=== PATIENT | female | born 2000 | race Caucasian/White ===

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

== ENCOUNTER 2019-01-31 10:02 | Emergency (ER) ==
[2019-01-31 10:11] VITALS: BP 130/90; TEMP 97.7; BMI 58.6
--- NOTE | 2019-01-31 11:02 | ED.PDOC ---
General ED Provider: Dr. MONICA SOMMERS Chief Complaint: Sore Throat Stated Complaint: sore throat Time Seen by Physician: 10:04 Mode of Arrival: Walk-In Information Source: Patient Exam Limitations: No limitations Primary Care Provider: DERRICK WU Nursing and Triage Documentation Reviewed and Agree: Yes Does patient meet sepsis criteria?: No If yes, has appropriate treatment been initiated?: No System Inflammatory Response Syndrome: Not Applicable Sepsis Protocol: For patient's 13 years and over: Temp is 96.8 and below OR 101 and greater Pulse >90 BPM Resp >20/minute Acutely Altered Mental Status Are patient's symptoms suggestive of a new infection, such as: -Pneumonia -Skin, Soft Tissue -Endocarditis -UTI -Bone, Joint Infection -Implantable Device -Acute Abdominal Infection -Wound Infection -Meningitis -Blood Stream Catheter Infection -Unknown EENT Complaint Exam - Throat Complaint/Exam Symptoms Are: Still present Timimg: Intermittent Initial Severity: Mild Current Severity: Mild Aggravating: Reports: None Alleviating: Reports: None Associated Signs and Symptoms: Reports: Chills, Cough, Nasal congestion. Denies : Fever, Dysphagia, Drooling, Foreign body sensation, Wheezing, Hoarseness, Sinus discomfort, Difficulty breathing, Lethargy, Irritability, Decreased activity, Vomiting, Diarrhea, Decreased hearing, Ear drainage Uvula Midline: Yes Rosalba-tonsillar Fluctuence: No Scarlatinaform Rash Present: No Lesions: Absent: Lip, Gums, Tongue, Buccal Mucosa, Pharynx Exanthem: Absent: Lip, Gums, Tongue, Buccal Mucosa, Pharynx Vesicles: Absent: Lip, Gums, Tongue, Buccal Mucosa, Pharynx Stridor Present: Yes Sinus Tenderness Present: No Tonsillar Hypertrophy Present: No Tonsillar Exudate Present: No Rosalba-tonsillar Swelling Present: No Review of Systems - Review Of Systems Constitutional: Reports: No symptoms Eyes: Reports: No symptoms Ears, Nose, Mouth, Throat: Reports: Throat pain Respiratory: Reports: No symptoms Cardiac: Reports: No symptoms GI: Reports: No symptoms : Reports: No symptoms Musculoskeletal: Reports: No symptoms Skin: Reports: No symptoms Neurological: Reports: No symptoms Endocrine: Reports: No symptoms Hematologic/Lymphatic: Reports: No symptoms All Other Systems: Reviewed and Negative Past Medical History - Past Medical History Previously Healthy: Yes Endocrine: Reports: None Cardiovascular: Reports: None Respiratory: Reports: None Hematological: Reports: None Gastrointestinal: Reports: None Genitourinary: Reports: None Neuro/Psych: Reports: None Musculoskeletal: Reports: None, Other (right ankle growth plate fracture) Cancer: Reports: None Last Menstrual Period: now - Surgical History General Surgical History: Reports: Appendectomy, Tonsillectomy, Adenoidectomy - Family History Family History: Reports: Unknown - Social History Smoking Status: Vaping Hx Substance Use: No Alcohol Screening: None Physical Exam - Physical Exam Appearance: Well-appearing, No pain distress, Well-nourished Eyes: EMORY, EOMI, Conjunctiva clear ENT: Ears normal, Nose normal, Erythema Respiratory: Airway patent, Breath sounds clear, Breath sounds equal, Respirations nonlabored Cardiovascular: RRR, Pulses normal, No rub, No murmur GI/: Soft, Nontender, No masses, Bowel sounds normal, No Organomegaly Musculoskeletal: Normal strength, ROM intact, No edema, No calf tenderness Skin: Warm, Dry, Normal color Neurological: Sensation intact, Motor intact, Reflexes intact, Cranial nerves intact, Alert, Oriented Psychiatric: Affect appropriate, Mood appropriate Critical Care Note - Critical Care Note Total Time (mins): 0 Course - Course Orders, Labs, Meds: Lab Review 01/31/19 10:25 Influ A Molecular Assay Negative by naat Influ B Molecular Assay Negative by naat Orders Category Date Time Status FLU A/B MOLECULAR Stat LAB 01/31/19 10:20 Uncollected MOLECULAR GROUP A STREP Stat LAB 01/31/19 10:20 Uncollected Vital Signs: Temp Pulse Resp BP Pulse Ox 01/31/19 10:03 97.7 F 93 H 16 130/90 97 Departure - Departure Time of Disposition: 11:02 Disposition: HOME SELF-CARE Discharge Problem: Sore throat symptom Pharyngitis Qualifiers: Pharyngitis/tonsillitis etiology: unspecified etiology Qualified Code(s): J02.9 - Acute pharyngitis, unspecified Instructions: Pharyngitis (ED) Condition: Good Pt referred to PMD for follow-up: Yes IPMP verified?: No Allergies/Adverse Reactions: Allergies No Known Allergies Allergy (Verified 01/31/19 10:07) Home Medications: Ambulatory Orders 1 [No Reported Medications] 01/31/19 Disposition Discussed With: Patient
== END 2019-01-31 11:45 | disposition home or self-care (01) ==
LOC: ED 10:02
DX: J02.9 Acute pharyngitis, unspecified (principal); R68.83 Chills (without fever); R05 Cough; R09.81 Nasal congestion; R07.0 Pain in throat
CPT/HCPCS: 87502; 87651; 99283

== ENCOUNTER 2019-06-12 22:51 | Emergency (ER) ==
[2019-06-12 23:02] VITALS: BP 131/83; TEMP 98.8; BMI 58.8
[2019-06-12] MEDS ORDERED: SODIUM CHLORIDE 1,000 ML IV STA (23:06)
--- NOTE | 2019-06-13 00:47 | ED.PDOC ---
General ED Provider: Dr. LAURA KIM-ER Chief Complaint: Abdominal Pain Stated Complaint: ino got pain around my navel Time Seen by Physician: 22:55 Mode of Arrival: Walk-In Information Source: Patient Exam Limitations: No limitations Primary Care Provider: DERRICK CHADWICK Nursing and Triage Documentation Reviewed and Agree: Yes Does patient meet sepsis criteria?: No System Inflammatory Response Syndrome: Not Applicable Sepsis Protocol: For patient's 13 years and over: Temp is 96.8 and below OR 101 and greater Pulse >90 BPM Resp >20/minute Acutely Altered Mental Status Are patient's symptoms suggestive of a new infection, such as: -Pneumonia -Skin, Soft Tissue -Endocarditis -UTI -Bone, Joint Infection -Implantable Device -Acute Abdominal Infection -Wound Infection -Meningitis -Blood Stream Catheter Infection -Unknown GI Complaint Exam - Abdominal Pain Complaint/Exam Onset: Gradual Duration: 24 hrs Symptoms Are: Still present Timing: Constant Initial Severity: Mild Current Severity: Mild Location of Pain: Epigastric Character: Reports: Aching Alleviating: Reports: None Associated Signs and Symptoms: Denies: Diaphoresis, Fever, Cough, Chest pain, Dizziness, Back pain, Constipation, Blood in stool, Dysuria, Urinary frequency, Decreased urine output, Decreased appetite, Vaginal bleeding, Vaginal discharge , Nausea, Vomiting, Diarrhea, Sore throat, Decreased activity Differential Diagnoses: Appendicitis Review of Systems - Review Of Systems Constitutional: Reports: No symptoms Eyes: Reports: No symptoms Ears, Nose, Mouth, Throat: Reports: No symptoms Respiratory: Reports: No symptoms Cardiac: Reports: No symptoms GI: Reports: Abdominal pain : Reports: No symptoms Musculoskeletal: Reports: No symptoms Skin: Reports: No symptoms Neurological: Reports: No symptoms Endocrine: Reports: No symptoms Hematologic/Lymphatic: Reports: No symptoms All Other Systems: Reviewed and Negative Past Medical History - Past Medical History Previously Healthy: Yes Endocrine: Reports: None Cardiovascular: Reports: None Respiratory: Reports: None Hematological: Reports: None Gastrointestinal: Reports: None Genitourinary: Reports: None Neuro/Psych: Reports: None Musculoskeletal: Reports: None, Other (right ankle growth plate fracture) Cancer: Reports: None Last Menstrual Period: 05/12/19 - Surgical History General Surgical History: Reports: Appendectomy, Tonsillectomy, Adenoidectomy - Family History Family History: Reports: Unknown - Social History Smoking Status: Former smoker, Vaping Hx Substance Use: No Alcohol Screening: None - Immunizations Tetanus Shot up to Date: Yes Physical Exam - Physical Exam Appearance: Well-appearing, No pain distress, Well-nourished Pain Distress: Mild Eyes: EMORY, EOMI, Conjunctiva clear ENT: Ears normal, Nose normal, Oropharynx normal Neck: Supple Respiratory: Airway patent, Breath sounds clear, Breath sounds equal, Respirations nonlabored Cardiovascular: RRR GI/: Soft, Nontender, No masses, Bowel sounds normal, No Organomegaly Musculoskeletal: Normal strength Skin: Warm, Dry, Normal color Neurological: Sensation intact, Motor intact, Reflexes intact, Cranial nerves intact, Alert, Oriented Psychiatric: Affect appropriate, Mood appropriate Interpretation - Radiology Interpretation Radiology Interpretation By: Radiologist Radiology Results: Positive Exam Interpreted: CT Scan Critical Care Note - Critical Care Note Total Time (mins): 0 Course - Course Hematology/Chemistry: 06/12/19 23:13 06/12/19 23:13 Orders, Labs, Meds: Lab Review 06/12/19 06/12/19 06/12/19 23:13 23:13 23:13 WBC 9.47 RBC 4.50 Hgb 13.6 Hct 40.7 MCV 90.4 MCH 30.2 MCHC 33.4 RDW Coeff of Jarett 12.6 Plt Count 367 Immature Gran % (Auto) 0.3 Neut % (Auto) 68.9 Lymph % (Auto) 22.2 [place] % (Auto) 7.8 Eos % (Auto) 0.4 Baso % (Auto) 0.4 Immature Gran # (Auto) 0.0 Neut # (Auto) 6.5 Lymph # (Auto) 2.1 [place] # (Auto) 0.7 Eos # (Auto) 0.0 Baso # (Auto) 0.0 ESR 18 Sodium 141.6 Potassium 4.00 Chloride 105.4 Carbon Dioxide 25.9 Anion Gap 14.30 BUN 7.6 Creatinine 0.69 Estimated GFR (MDRD) 110.00 BUN/Creatinine Ratio 11.01 Glucose 111.3 H Calcium 8.86 Total Bilirubin 0.49 L AST 19.5 ALT 17.9 Alkaline Phosphatase 69.4 Total Protein 7.06 Albumin 3.93 Globulin 3.13 Albumin/Globulin Ratio 1.25 Amylase 61.2 Lipase 98.4 Serum , Qual Negative Urine Color Urine Clarity Urine pH Ur Specific [place] Urine Protein Urine Glucose (UA) Urine Ketones Urine Blood Urine Nitrite Urine Bilirubin Urine Urobilinogen Ur Leukocyte Esterase Urine Microscopic RBC Urine Microscopic WBC Ur Squamous Epith Cells Urine Bacteria 06/13/19 00:50 WBC RBC Hgb Hct MCV MCH MCHC RDW Coeff of Jarett Plt Count Immature Gran % (Auto) Neut % (Auto) Lymph % (Auto) [place] % (Auto) Eos % (Auto) Baso % (Auto) Immature Gran # (Auto) Neut # (Auto) Lymph # (Auto) [place] # (Auto) Eos # (Auto) Baso # (Auto) ESR Sodium Potassium Chloride Carbon Dioxide Anion Gap BUN Creatinine Estimated GFR (MDRD) BUN/Creatinine Ratio Glucose Calcium Total Bilirubin AST ALT Alkaline Phosphatase Total Protein Albumin Globulin Albumin/Globulin Ratio Amylase Lipase Serum , Qual Urine Color Yellow Urine Clarity Slightly Urine pH 5.5 Ur Specific [place] 1.020 Urine Protein Negative Urine Glucose (UA) Negative Urine Ketones Negative Urine Blood Trace-intact Urine Nitrite Negative Urine Bilirubin Negative Urine Urobilinogen 0.2 Ur Leukocyte Esterase Negative Urine Microscopic RBC 0-2 Urine Microscopic WBC 2-5 Ur Squamous Epith Cells 5-10 Urine Bacteria 1+ Orders Category Date Time Status NPO REMINDER: IMAGING ONCE CARE 06/12/19 23:07 Completed ED IV/MEDIPORT/POWERPORT .ONCE EMERGENCY 06/12/19 23:06 Active AMYLASE Stat LAB 06/12/19 23:13 Completed CBC W/ AUTO DIFF Stat LAB 06/12/19 23:13 Completed COMPREHENSIVE METABOLIC PANEL Stat LAB 06/12/19 23:13 Completed ESR Stat LAB 06/12/19 23:13 Completed LIPASE Stat LAB 06/12/19 23:13 Completed SERUM Stat LAB 06/12/19 23:13 Completed URINALYSIS C & S IF INDICATED Stat LAB 06/13/19 00:50 Completed URINE CULTURE Stat LAB 06/13/19 01:07 Received 0.9 % Sodium Chloride [Saline Flush] MEDS 06/12/19 23:05 Discontinued 1 syr IVF PRN PRN Sodium Chloride 0.9% [Sodium Chloride] 1,000 ml MEDS 06/12/19 23:06 Discontinued IV 100 mls/hr CT ABDOMEN/PELVIS W/WO CONTRAS Stat RADS 06/12/19 23:06 Completed Medications Discontinued Medications Generic Name Dose Route Start Last Admin Trade Name Freq PRN Reason Stop Dose Admin Sodium Chloride 1,000 mls @ 100 mls/hr 06/12/19 23:06 06/12/19 23:48 Sodium Chloride IV 06/13/19 09:05 100 mls/hr .Q10H STA Administration Sodium Chloride 1 syr 06/12/19 23:05 Saline Flush IVF PRN PRN To flush IV Vital Signs: Temp Pulse Resp BP Pulse Ox 06/12/19 22:54 98.8 F 88 22 131/83 97 Departure - Departure Time of Disposition: 01:11 Disposition: HOME SELF-CARE Discharge Problem: Cellulitis, abdominal wall Instructions: Cellulitis (ED) Condition: Good Pt referred to PMD for follow-up: Yes IPMP verified?: No Additional Instructions: f/u with dr chadwick Prescriptions: Clindamycin HCl [Cleocin HCl] 300 mg PO QID #30 capsule Allergies/Adverse Reactions: Allergies No Known Allergies Allergy (Verified 06/12/19 23:01) Home Medications: Ambulatory Orders Metformin HCl 500 mg PO BID 06/12/19 Clindamycin HCl [Cleocin HCl] 300 mg PO QID #30 capsule 06/13/19 Disposition Discussed With: Patient, Family
--- NOTE | 2019-06-13 00:51 | CT ---
Exam: CT of the abdomen and pelvis with and without contrast History: Periumbilical pain Technique: [address] of the abdomen and pelvis pre and post intravenous contrast FINDINGS: The lung bases are clear. No significant liver abnormality. The adrenals, pancreas and sp deb are unremarkable. The stomach and hiatus are unremarkable.The gallbladder appears normal. Kidn eys and proximal collecting system are unremarkable. Prior appendectomy. Bowel loops demonstrate no rmal caliber. No inflamatory change seen in the mesentery or retroperitoneum. Vascular structures a ppear normal. Tiny fatty umbilical hernia. Mild skin thickening and inflammatory stranding in the u mbilicus. Pelvic genitourinary structures appear normal. Pelvic bowel loops are unremarkable. No inflammatory change in the pelvic fat. No acute abnormality of the abdominal or pelvic skeleton. Impression: 1. No bowel or urinary obstruction. No intra-abdominal inflammatory process. 2. Minor skin thickening and inflammatory stranding in the umbilicus. Correlate for possible cellul itis or manipulation.
== END 2019-06-13 01:20 | disposition home or self-care (01) ==
LOC: ED 22:51
DX: L03.311 Cellulitis of abdominal wall (principal)
CPT/HCPCS: 36415; 80053; 81001; 82150; 83690; 84703; 85025; 85651; 87086; 96360; 99283